=== PATIENT | female | born 1995 | race Caucasian/White ===

== ENCOUNTER 2017-04-16 09:35 | Emergency (ER) | payer MEDICAID ==
[~2017-04-16 09:35] MED LIST: ALBU18
== END 2017-04-16 10:14 | disposition left against medical advice (07) ==
LOC: ER 09:35
DX: R05 Cough (principal); Z53.21 Procedure and treatment not carried out due to patient leaving prior to being seen by health care provider

== ENCOUNTER 2021-09-08 01:26 | Emergency (ER) | payer MEDICAID, OTHER ==
[~2021-09-08] VITALS: Ht 165.1 cm; Wt 140.6 kg
[2021-09-08 01:27] VITALS: BP 124/62
[2021-09-08] MEDS ORDERED: IPRATROPIUM BROM 0.5 MG/2.5ML INH SOL NEB ONE (03:45)
[2021-09-08] MEDS ORDERED: ALBUTEROL SULF 2.5 MG/0.5ML(0.5%) NEB SOLN NEB ONE (03:45)
[2021-09-08] MEDS ORDERED: PROM1SOL4 PO (04:37)
[2021-09-08] MEDS ORDERED: AMOX500T3 PO (04:37)
== END 2021-09-08 05:05 | disposition home or self-care (01) ==
LOC: ER 01:26
DX: R06.9 Unspecified abnormalities of breathing (principal); J02.9 Acute pharyngitis, unspecified; J45.909 Unspecified asthma, uncomplicated
CPT/HCPCS: 71045; 94640; 99283; J7644

== ENCOUNTER 2021-09-21 18:37 | Emergency (ER) | payer OTHER ==
[~2021-09-21] VITALS: Ht 162.6 cm; Wt 158.8 kg
[~2021-09-21 18:37] MED LIST changes: +AMOX500T3 PO; +PROM1SOL4 PO
[2021-09-22] MEDS ORDERED: ONDANSETRON ODT 4 MG TAB PO ONE (01:45)
[2021-09-22 01:51] VITALS: BP 113/84
== END 2021-09-22 02:50 | disposition home or self-care (01) ==
LOC: ER 18:37
DX: M54.2 Cervicalgia (principal); L72.0 Epidermal cyst; J45.909 Unspecified asthma, uncomplicated; Z79.2 Long term (current) use of antibiotics; Z79.899 Other long term (current) drug therapy
CPT/HCPCS: 72125; 99284; Q0162

== ENCOUNTER 2021-11-15 10:26 | Emergency (ER) | payer OTHER ==
[~2021-11-15] VITALS: Ht 165.1 cm; Wt 140.9 kg
[2021-11-15 13:07] VITALS: BP 116/76
[2021-11-15] MEDS ORDERED: IBUP800T27 PO (14:46)
[2021-11-15] MEDS ORDERED: CYCL-837 PO (14:46)
== END 2021-11-15 14:51 | disposition home or self-care (01) ==
LOC: ER 10:26
DX: S16.1XXA Strain of muscle, fascia and tendon at neck level, initial encounter (principal); S39.012A Strain of muscle, fascia and tendon of lower back, initial encounter; S80.02XA Contusion of left knee, initial encounter; J45.909 Unspecified asthma, uncomplicated; Z79.1 Long term (current) use of non-steroidal anti-inflammatories (NSAID); Z79.2 Long term (current) use of antibiotics; Z79.899 Other long term (current) drug therapy; V43.52XA Car driver injured in collision with other type car in traffic accident, initial encounter; Y93.89 Activity, other specified; Y92.410 Unspecified street and highway as the place of occurrence of the external cause; Y99.8 Other external cause status
CPT/HCPCS: 72100; 72125; 73562